=== PATIENT | male | born 1955 | race Hispanic/Latino ===

== ENCOUNTER 2017-07-14 19:48 | Emergency (ER) | payer BC ==
[~2017-07-14] VITALS: Ht 170.2 cm; Wt 117.9 kg
== END 2017-07-14 20:48 | disposition home or self-care (01) ==
LOC: FSED 19:48
DX: R50.9 Fever, unspecified (principal); R05 Cough; J02.9 Acute pharyngitis, unspecified; R52 Pain, unspecified
CPT/HCPCS: 71020; 99282

== ENCOUNTER 2019-08-17 18:54 | Emergency (ER) | payer BC ==
[~2019-08-17] VITALS: Ht 170.2 cm; Wt 117.9 kg
[2019-08-17] MEDS ORDERED: LIDOCAINE 1% 5ML-MPF INJ ONE (19:15)
[2019-08-17] MEDS ORDERED: TETANUS/DIPHTHERIA TOX ADULT 0.5 ML SYR IM ONE (19:15)
[2019-08-17 19:59] VITALS: BP 109/75
== END 2019-08-17 20:15 | disposition home or self-care (01) ==
LOC: ER 18:54
DX: S01.01XA Laceration without foreign body of scalp, initial encounter (principal); W06.XXXA Fall from bed, initial encounter; Y93.84 Activity, sleeping; Y92.003 Bedroom of unspecified non-institutional (private) residence as the place of occurrence of the external cause
CPT/HCPCS: 90471; 99282

== ENCOUNTER 2024-07-30 05:30 | Emergency (ER) | payer BC, MEDICARE ==
[~2024-07-30] VITALS: Ht 170.2 cm; Wt 129.3 kg
[2024-07-30 05:40] VITALS: PULSE 83; RESP 20; TEMP 98
[2024-07-30] MEDS ORDERED: KETOROLAC TROMETHAMINE 60 MG/2 ML VIAL IM ONE (05:45)
[2024-07-30] MEDS: KETOROLAC TROMETHAMINE 30 MG/ML VIAL IV STA (05:59)
[2024-07-30] MEDS: HYDROCODONE/APAP 5MG-325MG TAB PO ONE (05:59)
[2024-07-30 09:31] VITALS: BP 148/74; PULSE 73; RESP 20; TEMP 98; O2SAT 96
== END 2024-07-30 09:30 | disposition home or self-care (01) ==
LOC: FSED 05:34
DX: M25.561 Pain in right knee (principal); W18.39XA Other fall on same level, initial encounter; Y93.01 Activity, walking, marching and hiking; M17.11 Unilateral primary osteoarthritis, right knee; E78.5 Hyperlipidemia, unspecified
CPT/HCPCS: 73562; 80053; 83880; 85025; 85379; 93970; 99283; J1885